=== PATIENT | female | born 1990 | race Caucasian/White ===

== ENCOUNTER 2022-01-16 08:16 | Outpatient (CLI) | payer OTHER | END 2022-01-16 09:53 | disposition home or self-care (01) | LOC: PRENATAL 08:16 | PROVIDERS: ATTEND Obstetrics & Gynecology Maternal & Fetal Medicine | DX: O35.0XX0 Maternal care for (suspected) central nervous system malformation in fetus, not applicable or unspecified (principal); O35.3XX0 Maternal care for (suspected) damage to fetus from viral disease in mother, not applicable or unspecified; O36.8199 Decreased fetal movements, unspecified trimester, other fetus; Z3A.35 35 weeks gestation of pregnancy ==

== ENCOUNTER 2022-01-20 21:52 | Outpatient (CLI) | payer OTHER ==
[2022-01-20] MEDS ORDERED: PRENATAL + DHA1 EAC1 PO (22:19)
== END 2022-01-21 09:16 | disposition home or self-care (01) ==
LOC: OBS/DEL 21:52
PROVIDERS: ATTEND Student in an Organized Health Care Education/Training Program
DX: O47.03 False labor before 37 completed weeks of gestation, third trimester (principal); Z3A.36 36 weeks gestation of pregnancy

== ENCOUNTER 2022-02-14 12:23 | Inpatient (IN) | payer OTHER ==
[~2022-02-14] VITALS: Ht 162.6 cm; Wt 87.5 kg
[~2022-02-14 12:23] MED LIST: PRENATAL + DHA1 EAC1 PO
[2022-02-17] MEDS ORDERED: IBUPROFEN800 MG PO (12:29)
[2022-02-17] MEDS ORDERED: DOCUSATE SODIU100 MG PO (12:29)
== END 2022-02-17 14:13 | disposition home or self-care (01) | DRG 788 ==
LOC: OB/GYN 12:23 → LDR 12:23 → OB/GYN 19:37
PROVIDERS: ADMIT Student in an Organized Health Care Education/Training Program; ATTEND Student in an Organized Health Care Education/Training Program
PROC: 3E033VJ Introduction of Other Hormone into Peripheral Vein, Percutaneous Approach (ICD-10-PCS; 2022-02-14)
PROC: 3E0DXGC Introduction of Other Therapeutic Substance into Mouth and Pharynx, External Approach (ICD-10-PCS; 2022-02-14)
PROC: 4A1HXCZ Monitoring of Products of Conception, Cardiac Rate, External Approach (ICD-10-PCS; 2022-02-14)
PROC: 10D00Z1 Extraction of Products of Conception, Low, Open Approach (ICD-10-PCS; principal; 2022-02-14 20:15)
DX: O61.0 Failed medical induction of labor (principal); O36.8130 Decreased fetal movements, third trimester, not applicable or unspecified; Z37.0 Single live birth; Z20.822 Contact with and (suspected) exposure to COVID-19; Z3A.39 39 weeks gestation of pregnancy